=== PATIENT | female | born 1955 | race Caucasian/White ===

== ENCOUNTER 2023-01-28 08:00 | Day surgery (SDC) | payer MEDICARE, BC ==
[2023-01-25 13:51] VITALS: BP 147/61
[~2023-01-28] VITALS: Ht 160 cm; Wt 53.6 kg
[~2023-01-28 08:00] MED LIST: ACETAMINOPHEN500 MG PO; ELDERBERRY IMM1 EACH PO; FAMOTIDINE20 MG PO; HYDROCODON-ACE1 EA10 PO; METOPROLOL SUC100 MG PO; MOTRIN IB200 MG PO; MULTI VITAMIN1 EACH PO; QUETIAPINE FUMA25 MG PO; TYLENOL EXTRA500 MG PO; VITAMIN C500 M1 PO; ZINC50 MG PO
[2023-01-28 08:20] VITALS: BP 168/87
--- NOTE | 2023-01-28 10:12 | NUR ---
01/28/23 1012 Janiya Kohler 0956- PT ARRIVED TO PACU AWAKE WITH O2 MASK IN PLACE AT 6L. PT DENIES NAUSEA, REPORTS SITE A LITTLE SORE. DRESSING IN PLACE TO RIGHT NECK AND RIGHT CHEST, CDI. LR INFUSING TO RFA. ALL MONITORS IN PLACE. 1007- PT ALERT AND ANSWERING QUESTIONS. O2 REMOVED AT THIS TIME. PT TOLERATING WELL WITH SATS MID 90'S.
[2023-01-28] MEDS ORDERED: OXYCODON-ACETA1 EAC2 PO (10:15)
[2023-01-28] MEDS ORDERED: ACETAMINOPHEN500 MG PO (10:15)
[2023-01-28] MEDS ORDERED: IBUPROFEN600 MG PO (10:15)
[2023-01-28 10:26] VITALS: BP 123/78
--- NOTE | 2023-01-28 14:25 | EKG ---
[facility] [address] [facility] [place] [address] Signed Sinus tachycardia Low voltage QRS Septal infarct , age undetermined Abnormal ECG When compared with ECG of 14-DEC-2022 06:38, Nonspecific T wave abnormality, improved in Inferior leads Confirmed by Juan Jacome MD () on 01/28/2023 2:24:52 PM Electronically Signed By: JUAN JACOME MD 01/28/23 1425 PATIENT NAME: ELMO VILLAREAL Electrocardiogram DATE OF : 51 PHYSICIAN: JUAN JACOME MD REPORT #: [id number] REPORT IS CONFIDENTIAL AND NOT TO BE RELEASED WITHOUT AUTHORIZATION
--- NOTE | 2023-01-29 14:14 | OR ---
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 PROCEDURES: 1. Ultrasound assisted access of right internal jugular vein. 2. Right internal jugular Port-A-Cath placement (Bard port catheter). 3. Surgeon-directed fluoroscopy. ANESTHESIA: General LMA, Leeanna Page CRNA and local 10 mL of 0.25% Marcaine with epinephrine. INDICATION: This 67-year-old white woman is a patient now of Luis Enrique Evans, formally having no primary care provider. She underwent emergency operation for hemorrhagic ascites, found to be related to serous adenocarcinoma of the ovary. Operation included bilateral salpingo-oophorectomy, omentectomy, tumor debulking including distal pancreatectomy and splenectomy. She has reviewed her treatment options with Dr. Erazo and is anticipating palliative chemotherapy. The risks of Port-A-Cath placement have been reviewed with her, which include but are not limited to bleeding, infection, pneumothorax and other unforeseen complications. Understanding these risks, she wished to proceed. FINDINGS: Good visualization right internal jugular vein was noted with ultrasound. Easy access was noted and dark nonpulsatile blood was noted confirming internal jugular vein. The port was placed without problem and is functioning well at conclusion of the procedure. DESCRIPTION OF PROCEDURE: The patient was brought to the operating room, placed in a mild Trendelenburg position, given a general LMA type anesthetic. Preoperative antibiotic Ancef was given. Sequential compression device stockings were used and heparin subcutaneously administered. The upper torso and neck was prepared with chlorhexidine solution and draped sterilely. The patient was placed in Trendelenburg position and using the Electronically Signed By: LEEANNA JACKMAN MD 01/29/23 1414 PATIENT NAME: ELMO VILLAREAL OPERATIVE REPORT DATE OF : 51 REPORT #: [id number] PHYSICIAN: LEEANNA JACKMAN MD PCP: LUIS ENRIQUE EVANS PA-C REPORT IS CONFIDENTIAL AND NOT TO BE RELEASED WITHOUT AUTHORIZATION [facility] [address] [place], [place] [address] Signed SonoSite ultrasound device with a sterile sheath, the right internal jugular vein was easily identified. The position of the carotid artery was somewhat medial and posterior to it. Under direct visualization with the Seldinger technique, the right internal jugular vein was easily accessed showing dark nonpulsatile blood. A flexible J-wire was passed down the needle. Various attempts of passage of the wire were unsuccessful and the procedure was repeated again, again confirming dark nonpulsatile blood. With various manipulations, the wire was easily able to pass down the internal jugular. Ectopic beats were identified and the wire manipulated to avoid further arrhythmia. Fluoroscopy was used to confirm that the wire was in the right heart system. The patient was then placed in the neutral position and 0.25% Marcaine was injected transversely over the right pectoral area. A transverse incision was made and a pocket created with blunt and electrocautery dissection. Some muscle fibers had some bleeding. These areas were oversewn with Vicryl. A port device ([employer] port catheter device) was irrigated with saline and partially secured to the pectoralis fascia. Attention was turned towards this wire emanating from the right neck. The site was incised with an 11 blade, dilated and subsequently dilator and peel-away sheath introducer passed over the wire. The dilator and wire were removed showing vigorous retrograde nonpulsatile venous bleeding. The previously inspected Groshong catheter with the Bard port kit was passed down the sheath and the sheath peeled away while stabilizing the catheter. Aspiration and suction with heparinized saline showed good venous access. Under fluoroscopic control, the tip of the catheter was withdrawn to the atriocaval junction. IV contrast affirmed the position to be appropriate. Using the tunneling device, the catheter was delivered to the port site over the right pectoral area, trimmed to the appropriate length and secured to the port device with enclosed collar per office machinery or equipment installer's instructions. The previously partially secured port was then secured more fully. Aspiration with an angled Uribe needle on the port showed easy withdrawal of blood and easy flushing with saline. Fluoroscopy was once again used to confirm the configuration of the port showing a smooth contour without sign of kink or angulation deformity. Position appeared to be appropriate. The port was additionally flushed with heparinized saline and the port site closed with interrupted 2-0 Vicryl and a running subcuticular 3-0 Vicryl for the skin. The skin incision over the right neck was secured with interrupted 2-0 Vicryl Steri-Strips were applied to each site. One last access of the port with an angled Electronically Signed By: LEEANNA JACKMAN MD 01/29/23 1414 PATIENT NAME: ELMO VILLAREAL OPERATIVE REPORT DATE OF : 51 REPORT #: [id number] PHYSICIAN: LEEANNA JACKMAN MD PCP: LUIS ENRIQUE EVANS PA-C REPORT IS CONFIDENTIAL AND NOT TO BE RELEASED WITHOUT AUTHORIZATION [address] [place] [address], [place] [address] Signed Uribe needle showed good function of the catheter. The wounds were then additionally secured with an Acticoat dressing on the pectoral area and an OpSite over the Steri-Strips on the neck. She was transferred to recovery room in good condition having suffered no complication. Blood loss was less than 20 mL. A postprocedure chest x-ray is well positioned showing no sign of complication and no kink or angulation deformity of the catheter or port. MD JAMEL Alfaro/EMILY /[id number] cc: MD Luis Enrique Krueger PA Copies: GABI ERAZO MD ~ Electronically Signed By: LEEANNA JACKMAN MD 01/29/23 1414 PATIENT NAME: ELMO VILLAREAL OPERATIVE REPORT DATE OF : 51 REPORT #: [id number] PHYSICIAN: LEEANNA JACKMAN MD PCP: LUIS ENRIQUE EVANS PA-C REPORT IS CONFIDENTIAL AND NOT TO BE RELEASED WITHOUT AUTHORIZATION
== END 2023-01-28 10:39 | disposition home or self-care (01) ==
LOC: DS 08:00 → OPS 08:00 → DS 09:45 → OPS 10:39
PROVIDERS: ATTEND Surgery
PROC: 05HM33Z Insertion of Infusion Device into Right Internal Jugular Vein, Percutaneous Approach (ICD-10-PCS; 2023-01-28)
PROC: 0JH60WZ Insertion of Totally Implantable Vascular Access Device into Chest Subcutaneous Tissue and Fascia, Open Approach (ICD-10-PCS; principal; 2023-01-28 09:45)
DX: Z45.2 Encounter for adjustment and management of vascular access device (principal); C56.9 Malignant neoplasm of unspecified ovary; I10 Essential (primary) hypertension
CPT/HCPCS: 00532; 71045; 77001; 93005; 93010; C1788; J0131; J0690; J1100; J1644; J1885; J2250; J2405; J2704; J2765; J3010; J7121